=== PATIENT | female | born 1975 | race Caucasian/White ===

== ENCOUNTER → 2021-04-13 14:38 | Outpatient (CLI) | payer BC, SELFPAY ==
[2021-04-13 15:24] LABS: Basophils % 0.5 % (0.1-2.0); Eosinophils % 0.9 % (0.1-12.0); Hematocrit 45.2 % (37.0-47.0); Lymphocytes # 1.1 K/mm3 (0.7-4.5); Mean Corpuscular HGB Conc 33.2 g/dL (31.8-35.4); Mean Corpuscular Hemoglobin 30.8 pg (27.0-31.2); Mean Corpuscular Volume 92.7 fl (81-99); Mean Platelet Volume 8.2 fl (7.4-10.4); Monocytes # 0.2 K/mm3 (0.1-1.0); Monocytes % 5.7 % (1.7-9.3); Neutrophils # 2.7 K/mm3 (1.8-7.8); Neutrophils % 65.9 % (37.0-80.0); Platelet Count 251 K/mm3 (142-424); Red Blood Count 4.88 M/mm3 (4.20-5.40); Red Cell Distribution Width 12.2 % (11.5-17.5); White Blood Count 4.1 K/mm3 (4.8-10.8)
[2021-04-13 16:10] LABS: Lactate Dehydrogenase 238 U/L (313-618)
[2021-04-13 17:18] LABS: Vitamin B12 692 pg/mL (239-931)
[2021-04-13 17:34] LABS: Folate 7.24 ng/mL
[2021-04-15 14:40] LABS: Peripheral Smear Review Scanned Result
== END ==
PROVIDERS: Visit Provider Internal Medicine Medical Oncology
DX: D64.9 Anemia, unspecified (principal)
CPT/HCPCS: 36415; 82525; 82607; 82746; 83615; 85025

== ENCOUNTER 2023-04-11 08:00 | Outpatient (RCR) | payer BC, SELFPAY | END 2023-05-16 14:30 | disposition home or self-care (01) | LOC: PT 08:00 | PROVIDERS: Visit Provider Orthopaedic Surgery | DX: M67.813 Other specified disorders of tendon, right shoulder (principal) | CPT/HCPCS: 97010; 97014; 97035; 97110; 97140; 97163; 97164; G0283 ==

== ENCOUNTER 2023-10-01 20:18 | Emergency (ER) | payer BC, SELFPAY ==
[2023-10-01] VITALS (8 sets, daily range): BP systolic 119–196; BP diastolic 73–96; PULSE 65–82; RESP 12–20; TEMP 36.6–36.7; O2SAT 95–100; BMI 27.4; BMI 24.0
--- NOTE | 2023-10-01 20:20 | ECG_ITS ---
APPROVED REPORT Exam: Resting ECG HR:73 bpm ECG Measurements Heart Rate 73 AXES KS 156 P 71 QRSd 78 QRS 71 QT 358 T 66 QTc 383 Conclusion SINUS RHYTHM NORMAL ECG UNCONFIRMED REPORT Electronically signed by : Beto Hoskins MD 10/01/2023 21:51:54
--- NOTE | 2023-10-01 20:20 | XR_ITS ---
PROCEDURE INFORMATION: Exam: XR Chest Exam date and time: 10/01/2023 8:30 PM Age: 47 years old Clinical indication: Pain; Chest pressure; Additional info: Cp TECHNIQUE: Imaging protocol: Radiologic exam of the chest. Views: 1 view. COMPARISON: No relevant prior studies available. FINDINGS: Lungs: Unremarkable. No consolidation. Pleural spaces: Unremarkable. No pleural effusion. No pneumothorax. Heart/Mediastinum: Unremarkable. No cardiomegaly. Bones/joints: Unremarkable. IMPRESSION: No acute findings.
[2023-10-01 20:44] LABS: Basophils % 0.8 % (0.1-2.0); Eosinophils # 0.1 K/mm3 (0.0-0.4); Eosinophils % 1.5 % (0.1-12.0); Hematocrit 45.6 % (37.0-47.0); Hemoglobin 15.6 g/dL (12.2-16.2); Lymphocytes # 1.9 K/mm3 (0.7-4.5); Lymphocytes % 45.2 % (10-50); Mean Corpuscular HGB Conc 34.3 g/dL (31.8-35.4); Mean Corpuscular Hemoglobin 30.8 pg (27.0-31.2); Mean Corpuscular Volume 89.6 fl (81-99); Mean Platelet Volume 7.8 fl (7.4-10.4); Monocytes # 0.3 K/mm3 (0.1-1.0); Monocytes % 7.4 % (1.7-9.3); Neutrophils # 1.9 K/mm3 (1.8-7.8); Neutrophils % 45.1 % (37.0-80.0); Platelet Count 235 K/mm3 (142-424); Red Blood Count 5.09 M/mm3 (4.20-5.40); Red Cell Distribution Width 12.8 % (11.5-17.5); White Blood Count 4.3 K/mm3 (4.8-10.8)
--- NOTE | 2023-10-01 20:51 | PC.NURSE ---
rounded on pt at this time. Pt voices no needs.
[2023-10-01 20:57] LABS: Chloride 99 mmol/L (98-107); Potassium 3.3 mmoL/L (3.5-5.1); Sodium 137 mmol/L (136-145)
[2023-10-01 21:00] LABS: Alanine Aminotransferase 29 U/L (12-78); Albumin Level 4.7 g/dl (3.5-5.0); Albumin/Globulin Ratio 1.6 (1.1-1.8); Alkaline Phosphatase 84 U/L (38-126); Anion Gap 7.3 mEq/L (5-15); Aspartate Amino Transferase 44 U/L (14-36); Bilirubin,Total 0.6 mg/dl (0.2-1.3); Blood Urea Nitrogen 16 mg/dl (7-17); Calcium 9.5 mg/dl (8.4-10.2); Carbon Dioxide 34 mmol/L (22.0-30.0); Creatinine Clearance Estimated 76 mL/min (50-200); Estimated Glomerular Filt Rate 67 ml/min (>60); GFR (African American) 81 ML/MIN (>60); Glucose 88 mg/dl (74-100); Total Protein,Serum 7.7 g/dl (6.3-8.2)
--- NOTE | 2023-10-01 21:29 | ED_ITS ---
Discharge Plan Disposition Patient Disposition: Home, Self-Care Prescriptions Prescriptions: No Action cetirizine [Zyrtec] 10 mg capsule 10 mg PO ONCE levothyroxine 50 mcg tablet 50 mcg PO DAILY fluticasone propionate [Flonase Allergy Relief] 50 mcg/actuation spray,suspension 1 spray INTRANASAL DAILY Rx Instructions: administer into each nostril Imvexxy Maintenance Pack 10 mcg insert 10 mcg VAGINAL DAILY Referrals Follow up/Referrals: Marley Kang [Primary Care Provider] - See instructions Stanley Valdes MD [Staff Physician] - See instructions Activity Restrictions/Add. Instructions Additional Instructions/Restrictions: No evidence of an acute cardiopulmonary emergency please follow-up with Dr. Valdes to discuss further downstream noninvasive cardiac imaging and further discussion for downstream testing to rule out any underlying cardiac disease. Clinical Impressions Clinical Impression: Chest pain, Hypertension Discharge ED Provider: Lauren Stephens HPI <J Alex Cr MD - Last Filed: 10/01/23 21:55> General Chief Complaint: Chest Pain Stated Complaint: chest pain Time Seen by Provider: 10/01/23 21:04 Mode of Arrival: Ambulatory Source of Information: Patient Limitations: No Limitations Description of Symptoms (Recalled from ER Triage Doc. by RN): Pt ambultory to ED with CO of feeling weird since 7pm last night. Pt reports pain in upper left chest / shoulder and tingling down left arm. Pt reports taking 5 aspirin before arrival. Pt reports the paain comes and goes and nothing makes it worse or better. Pt reports recent GI virus History of Present Illness HPI narrative: Patient is a 47-year-old female with a history of MTHFR hypercoagulable state not on anticoagulation presenting today with chest pain. States this has been intermittent over the last 2 days and she has had at least 10 episodes over the last several hours longest episode lasting about 5 to 7 minutes. She has some discomfort in her substernal area radiating to her left arm but nonexertional no diaphoresis associated with this. Additionally she states she feels fire in her face and in her chest and had some redness to her face she states. States that she took her blood pressure and it was elevated and she got very anxious and worried and therefore came to the emergency department as she worked herself into it. She denies any significant anxiety or stress in her life at the moment. Denies any lower extremity swelling history of DVT or PE or hemoptysis. No recent or prolonged immobilizations or surgeries recently. States that she was diagnosed initially with factor V Leiden after multiple miscarriages in the past but eventually after having superficial thrombophlebitis followed up with hematology travel specialist to rule out factor V Leiden and diagnosed her with MTHFR abnormalities. She has not been on any anticoagulation since that time because she has not had any worsening clotting problems in the past. She does not smoke she is not on any exogenous hormones. Only other medical problem is thyroid dysfunction. Of note she did take 5 aspirin prior to arrival today. Related Data Home Medications Medication Instructions Recorded Confirmed cetirizine 10 mg capsule (Zyrtec) 10 mg PO ONCE 02/25/18 11/23/21 fluticasone propionate 50 1 spray intranasal DAILY 04/13/21 11/23/21 mcg/actuation nasal spray,suspension (Flonase Allergy Relief) levothyroxine 50 mcg tablet 50 mcg PO DAILY 04/13/21 11/23/21 estradiol 10 mcg vaginal insert 10 mcg vaginal DAILY 11/23/21 11/23/21 (Imvexxy Maintenance Pack) Allergies Allergy/AdvReac Type Severity Reaction Status Date / Time erythromycin base Allergy Mild Verified 11/23/21 10:05 [ERYTHROMYCIN BASE] naproxen [NAPROXEN] Allergy Mild Verified 11/23/21 10:05 PCN Allergy Mild Uncoded 08/06/17 15:21 PFSH <Shalom Cr MD - Last Filed: 10/01/23 21:55> [facility] Disclaimer: The information contained in this section may have been updated after the patient was seen, as this information can be updated by other users. Social History Smoking Status: Unknown if ever smoked alcohol intake: never substance use type: denies use current occupational status: employed Travel in the last 8 weeks: None <Shalom Cr MD - Last Filed: 10/01/23 21:55> ROS Obtained: Yes All systems reviewed & no additional complaints except as documented Physical Exam <Shalom Cr MD - Last Filed: 10/01/23 21:55> General General appearance: alert Respiratory Respiratory exam: Present normal lung sounds bilaterally and respiratory distress Cardiovascular Cardiovascular exam: Present regular rate and normal rhythm Abdominal Exam Abdominal exam: Present soft; Absent distention or tenderness Neurological Exam Neurological exam: Present alert HEART Score <Shalom Cr MD - Last Filed: 10/01/23 21:55> HEART Score HEART Score assessment performed?: Yes History (anamnesis): Slightly suspicious ECG: Normal Age: 45-65 years Risk factors: 1-2 risk factors Troponin: </= normal limit HEART Score: 2 <Lauren StephensDO - Last Filed: 10/01/23 23:56> HEART Score HEART Score: 2 Critical Care <Shalom Cr MD - Last Filed: 10/01/23 21:55> Critical Care Time Critical Care Time: No Medical Decision Making <Shalom Cr MD - Last Filed: 10/01/23 21:55> [place] Inquiry Pt receiving controlled substance: No Vital Signs Vital Signs: 10/01/23 20:29 10/01/23 21:31 10/01/23 22:00 Temperature 97.8 F Temperature Source Oral Pulse Rate 67 73 Pulse Rate [Left Radial] 82 Respiratory Rate 20 12 17 Blood Pressure 134/77 127/85 Blood Pressure [Left Arm] 196/96 H Blood Pressure Mean [Left Arm] 129 Blood Pressure Source [Left Arm] Automatic Cuff Blood Pressure Position [Left Arm] Sitting 02 Sat by Pulse Oximetry 95 100 99 Oxygen Delivery Method Room Air 10/01/23 22:15 10/01/23 22:31 10/01/23 23:00 Temperature Temperature Source Pulse Rate 70 68 65 Pulse Rate [Left Radial] Respiratory Rate 17 15 15 Blood Pressure 127/79 120/73 121/81 Blood Pressure [Left Arm] Blood Pressure Mean [Left Arm] Blood Pressure Source [Left Arm] Blood Pressure Position [Left Arm] 02 Sat by Pulse Oximetry 97 97 98 Oxygen Delivery Method 10/01/23 23:30 Temperature Temperature Source Pulse Rate 66 Pulse Rate [Left Radial] Respiratory Rate 15 Blood Pressure 119/80 Blood Pressure [Left Arm] Blood Pressure Mean [Left Arm] Blood Pressure Source [Left Arm] Blood Pressure Position [Left Arm] 02 Sat by Pulse Oximetry 98 Oxygen Delivery Method Lab Data Lab results reviewed: Yes I reviewed the patient's lab results. Labs: Lab Results 10/01/23 20:36: WBC 4.3 L, RBC 5.09, Hgb 15.6, Hct 45.6, MCV 89.6, MCH 30.8, MCHC 34.3, RDW 12.8, Plt Count 235, MPV 7.8, Neut % (Auto) 45.1, Lymph % (Auto) 45.2, Wharton % (Auto) 7.4, Eos % (Auto) 1.5, Baso % (Auto) 0.8, Neut # (Auto) 1.9, Lymph # (Auto) 1.9, Wharton # (Auto) 0.3, Eos # (Auto) 0.1, Baso # (Auto) 0.0, D- Dimer 0.33, Sodium 137, Potassium 3.3 L, Chloride 99, Carbon Dioxide 34 H, Anion Gap 7.3, BUN 16, Creatinine 0.90, Estimated Creat Clear 76, Estimated GFR 67, Est GFR ( Amer) 81, Glucose 88, Calcium 9.5, Total Bilirubin 0.6, AST 44 H, ALT 29, Alkaline Phosphatase 84, Troponin I < 0.01, Total Protein 7.7, Albumin 4.7, Globulin 3.0, Albumin/Globulin Ratio 1.6, Lipase 332 H 10/01/23 23:15: Troponin I < 0.01 10/01/23 20:36 10/01/23 20:36 Response Orders (Tests/Meds): ED MEDICATIONS Discontinued Medications Generic Name Dose Route Start Last Admin Trade Name Freq PRN Reason Stop Dose Admin Belladonna Alkaloids 60 ml 10/01/23 21:26 10/01/23 21:41 Belladonna Alkaloids 60 Ml Ml PO 10/01/23 21:27 60 ml ONCE ONE Administration ORDERS Category Date Time Status Chest XR -- portable [XR chest portable] Stat Exams 10/01/23 20:20 Completed Complete Blood Count Auto Diff Stat Lab 10/01/23 20:36 Completed Comprehensive Metabolic Panel Stat Lab 10/01/23 20:36 Completed D-Dimer Stat Lab 10/01/23 20:36 Completed Lipase Stat Lab 10/01/23 20:36 Completed Troponin I Q3H Lab 10/01/23 23:15 Completed Troponin I Q3H Lab 10/02/23 02:30 Ordered Troponin I Stat Lab 10/01/23 20:36 Completed ECG initial Besson Routine Y 10/01/23 20:20 Completed ECG Data Tracing #1: Attestation: I reviewed this ECG and interpreted as documented below: ECG Narrative: Ventricular rate of [address] elevations or depressions or other ischemic changes noted normal axis no conduction abnormalities nondiagnostic and normal EKG MDM Narrative Medical Decision Narrative: Very well-appearing 47-year-old female presenting today with intermittent substernal chest pressure radiating to her left arm not exertional not associated with position no diaphoresis or shortness of breath associated with this. No leg swelling or signs or symptoms of DVT or PE. Given the fact that she has a concern for MTHFR hypercoagulable state but has not had DVTs or PEs in the past pulmonary malaise him certainly on the differential but I still think is low likelihood given her very well-appearing presentation. Therefore we will get a D-dimer and will use a cutoff of 1.0 utilizing years criteria for this particular assessment. Given the fact that she has had intermittent symptoms she will require serial troponins. EKG is nonischemic. Possible that some of the symptoms she is a spearing seeing her perimenopausal at her age and the warm hot flashes that she is describing but this is nonspecific. Additionally possible that this is anxiety but that the diagnosis of exclusion and I will recommend that she follow-up with a cloth dyeing range tender for discussion for a stress test or a heart catheter or other noninvasive cardiac imaging after her evaluat ion today. D-dimer is below my threshold for CT PE further workup. This makes pulm embolism exceedingly unlikely. Troponin undetectably low awaiting second troponin. ED observation order placed at 954 pending second troponin reassessment of her blood pressure is normal as well blood pressure is 130/70 at this point. Care will be transitioned to Dr. Lauren Stephens for final evaluation and treatment pending second troponin. <Lauren Stephens, DO - Last Filed: 10/01/23 23:56> Vital Signs Vital Signs: 10/01/23 20:29 10/01/23 21:31 10/01/23 22:00 Temperature 97.8 F Temperature Source Oral Pulse Rate 67 73 Pulse Rate [Left Radial] 82 Respiratory Rate 20 12 17 Blood Pressure 134/77 127/85 Blood Pressure [Left Arm] 196/96 H Blood Pressure Mean [Left Arm] 129 Blood Pressure Source [Left Arm] Automatic Cuff Blood Pressure Position [Left Arm] Sitting 02 Sat by Pulse Oximetry 95 100 99 Oxygen Delivery Method Room Air 10/01/23 22:15 10/01/23 22:31 10/01/23 23:00 Temperature Temperature Source Pulse Rate 70 68 65 Pulse Rate [Left Radial] Respiratory Rate 17 15 15 Blood Pressure 127/79 120/73 121/81 Blood Pressure [Left Arm] Blood Pressure Mean [Left Arm] Blood Pressure Source [Left Arm] Blood Pressure Position [Left Arm] 02 Sat by Pulse Oximetry 97 97 98 Oxygen Delivery Method 10/01/23 23:30 Temperature Temperature Source Pulse Rate 66 Pulse Rate [Left Radial] Respiratory Rate 15 Blood Pressure 119/80 Blood Pressure [Left Arm] Blood Pressure Mean [Left Arm] Blood Pressure Source [Left Arm] Blood Pressure Position [Left Arm] 02 Sat by Pulse Oximetry 98 Oxygen Delivery Method Lab Data Labs: Lab Results 10/01/23 20:36: WBC 4.3 L, RBC 5.09, Hgb 15.6, Hct 45.6, MCV 89.6, MCH 30.8, MCHC 34.3, RDW 12.8, Plt Count 235, MPV 7.8, Neut % (Auto) 45.1, Lymph % (Auto) 45.2, Wharton % (Auto) 7.4, Eos % (Auto) 1.5, Baso % (Auto) 0.8, Neut # (Auto) 1.9, Lymph # (Auto) 1.9, [place]arton # (Auto) 0.3, Eos # (Auto) 0.1, Baso # (Auto) 0.0, D- Dimer 0.33, Sodium 137, Potassium 3.3 L, Chloride 99, Carbon Dioxide 34 H, Anion Gap 7.3, BUN 16, Creatinine 0.90, Estimated Creat Clear 76, Estimated GFR 67, Est GFR ( Amer) 81, Glucose 88, Calcium 9.5, Total Bilirubin 0.6, AST 44 H, ALT 29, Alkaline Phosphatase 84, Troponin I < 0.01, Total Protein 7.7, Albumin 4.7, Globulin 3.0, Albumin/Globulin Ratio 1.6, Lipase 332 H 10/01/23 23:15: Troponin I < 0.01 Response Orders (Tests/Meds): ED MEDICATIONS Discontinued Medications Generic Name Dose Route Start Last Admin Trade Name Freq PRN Reason Stop Dose Admin Belladonna Alkaloids 60 ml 10/01/23 21:26 10/01/23 21:41 Belladonna Alkaloids 60 Ml Ml PO 10/01/23 21:27 60 ml ONCE ONE Administration ORDERS Category Date Time Status Chest XR -- portable [XR chest portable] Stat Exams 10/01/23 20:20 Completed Complete Blood Count Auto Diff Stat Lab 10/01/23 20:36 Completed Comprehensive Metabolic Panel Stat Lab 10/01/23 20:36 Completed D-Dimer Stat Lab 10/01/23 20:36 Completed Lipase Stat Lab 10/01/23 20:36 Completed Troponin I Q3H Lab 10/01/23 23:15 Completed Troponin I Q3H Lab 10/02/23 02:30 Ordered Troponin I Stat Lab 10/01/23 20:36 Completed ECG initial [place] Routine Y 10/01/23 20:20 Completed MDM Narrative Medical Decision Narrative: Very well-appearing 47-year-old female presenting today with intermittent substernal chest pressure radiating to her left arm not exertional not associated with position no diaphoresis or shortness of breath associated with this. No leg swelling or signs or symptoms of DVT or PE. Given the fact that she has a concern for MTHFR hypercoagulable state but has not had DVTs or PEs in the past pulmonary malaise him certainly on the differential but I still think is low likelihood given her very well-appearing presentation. Therefore we will get a D-dimer and will use a cutoff of 1.0 utilizing years criteria for this particular assessment. Given the fact that she has had intermittent symptoms she will require serial troponins. EKG is nonischemic. Possible that some of the symptoms she is a spearing seeing her perimenopausal at her age and the warm hot flashes that she is describing but this is nonspecific. Additionally possible that this is anxiety but that the diagnosis of exclusion and I will recommend that she follow-up with a cloth dyeing range tender for discussion for a stress test or a heart catheter or other noninvasive cardiac imaging after her evaluation today. D-dimer is below my threshold for CT PE further workup. This makes pulm embolism exceedingly unlikely. Troponin undetectably low awaiting se cond troponin. ED observation order placed at 954 pending second troponin reassessment of her blood pressure is normal as well blood pressure is 130/70 at this point. Care will be transitioned to Dr. Lauren Stephens for final evaluation and treatment pending second troponin. DO Angelo: On my assessment of the patient, she is resting calmly with improved symptoms. Vitals are normal on cardiac telemetry. Second troponin was also undetectable. Given this as well as the reassuring workup that was mentioned above, I do not feel that further labs or imaging are indicated in the emergency department or as anpatient at this time. Patient was deemed to be appropriate for discharge with close [facility] follow-up. She was given strict return precautions and was discharged in stable condition after all questions were answered.
[2023-10-01 21:31] LABS: Troponin I < 0.01 ng/ml (0.00-0.034)
[2023-10-01 21:40] LABS: Lipase 332 U/L (23-300)
[2023-10-01] MEDS: BELLADONNA ALKALOIDS 60 ML ML PO (21:41)
[2023-10-01 21:45] LABS: D-Dimer 0.33 ug/mL (0.0-0.5)
--- NOTE | 2023-10-01 22:20 | PC.NURSE ---
rounded on patient, no needs voiced at this time.
[2023-10-01 23:48] LABS: Troponin I < 0.01 ng/ml (0.00-0.034)
--- NOTE | 2023-10-01 23:50 | PC.NURSE ---
in room talking with patient at this time.
== END 2023-10-02 | disposition home or self-care (01) ==
PROVIDERS: Student in an Organized Health Care Education/Training Program; Emergency Provider Emergency Medicine; PCP Nurse Practitioner Family
DX: E87.6 Hypokalemia (principal); R07.89 Other chest pain; I10 Essential (primary) hypertension
CPT/HCPCS: 36415; 71045; 80053; 83690; 84484; 85025; 85378; 93005; 99284